=== PATIENT | male | born 1970 | race Caucasian/White ===

== ENCOUNTER 2022-02-25 12:31 | Emergency (ER) | payer OTHER ==
[~2022-02-25] VITALS: Ht 175.3 cm; Wt 86.2 kg
[~2022-02-25 12:31] MED LIST: HYDR12.5
[2022-02-25 13:00] VITALS: BP 119/93
--- NOTE | 2022-02-25 14:38 | NUR ---
Patient discharged to home in stable condition. Written and verbal after care instructions given. Patient verbalizes understanding of instruction.
== END 2022-02-25 14:39 | disposition home or self-care (01) ==
LOC: ER 12:36
DX: S86.911A Strain of unspecified muscle(s) and tendon(s) at lower leg level, right leg, initial encounter (principal); I10 Essential (primary) hypertension; Z79.899 Other long term (current) drug therapy; X50.1XXA Overexertion from prolonged static or awkward postures, initial encounter; Y93.89 Activity, other specified; Y92.89 Other specified places as the place of occurrence of the external cause; Y99.8 Other external cause status
CPT/HCPCS: 73610-TC